=== PATIENT | male | born 1940 | race Caucasian/White ===

== ENCOUNTER → 2018-01-30 | Outpatient (CLI) | payer MEDICARE ==
--- NOTE | 2018-01-30 15:23 | CT ---
EXAMINATION TYPE: CT abdomen pelvis w con DATE OF EXAM: 01/30/2018 COMPARISON: NONE HISTORY: 77-year-old male Left lower quadrant pain x 2 weeks. Mid pelvic pain x today. TECHNIQUE: Contiguous axial scanning of the abdomen and pelvis following administration of 100 ml Iso chavo 300 IV contrast. Delayed images through the kidneys and coronal/sagittal reconstructions perform ed. CT DLP: 722.5 mGycm Automated exposure control for dose reduction was used. FINDINGS: Normal size without pericardial effusion. Some strandy atelectasis in the lower lungs without pleural effusion. Partially visualized calcified mediastinal and right hilar lymph nodes suggesting prior gr anulomatous disease. No focal liver lesion or biliary ductal dilatation. Portal venous system is patent. Cholecystectomy clips. Kym hepatis lymph node measures up to 1.3 cm. Adrenal glands and spleen appear within normal limits. Numerous subcentimeter hypodensities in both kidneys too small for accurate CT characterization, most suggestive of cysts. There is a nonobstructive 6 mm calculus midpole right kidney. Symmetric excreti on of contrast from both kidneys. Spleen is borderline enlarged at 14.0 cm with a 1.8 cm round enhancing mass anteriorly is also blood pool and delayed kidney images suggesting a hemangioma. Smaller similar lesion measuring 7 mm in the mid aspect of the spleen. Numerous mildly enlarged retroperitoneal lymph nodes measure up to 1.4 cm short axis, thoracic percen t of images, refer to coronal images 43 through 47. Some of the larger lymph nodes are in the left pa ra-aortic region, axial image 39. No dilated small bowel, free fluid, or free air. Oral contrast has progressed to the rectum. There is sigmoid diverticulosis with a there is a mild wa ll thickening in the sigmoid colon. Mild pericolonic fat stranding, particularly, coronal image 36 on the mid sigmoid colon. Bladder is urine distended. No abnormal fluid collection the pelvis. Prominent external iliac chain l ymph nodes measure up to 9 mm on the left and 7 mm on the right. Partially visualized small left-side d hydrocele. Bones: Degenerative spurring at the right SI joint. Degenerative changes mid to lower lumbar spine. A nterior plate spondylosis. Additionally degenerative disc disease lower thoracic spine. IMPRESSION: 1. SIGMOID DIVERTICULOSIS. THERE IS SOME MILD WALL THICKENING IN THE SIGMOID COLON AND SOME FOCAL PER ICOLONIC FAT STRANDING WHICH COULD REPRESENT PROMINENT VESSELS OR MILD INFLAMMATION RELATED TO MILD A CUTE DIVERTICULITIS ALONG THE MID SIGMOID. NO ABSCESS OR FREE AIR. 2. BORDERLINE SPLENOMEGALY ALONG WITH NUMEROUS NONENLARGED AND MILDLY ENLARGED RETROPERITONEAL LYMPH NODES MEASURING UP TO 1.4 CM. SYSTEMIC INFECTIOUS PROCESS OR AN INDOLENT LYMPHOMA IS NOT EXCLUDED AT THIS TIME. FOLLOW-UP IN 3 MONTHS TO ASSESS FOR STABILITY/RESOLUTION. CONSIDER [facility] REFERRAL IN THE MEANTIME.
== END ==
LOC: RADCTMAIN 12:26
PROVIDERS: ATTEND Internal Medicine Geriatric Medicine
DX: K57.30 Diverticulosis of large intestine without perforation or abscess without bleeding (principal); K59.8 Other specified functional intestinal disorders; R16.1 Splenomegaly, not elsewhere classified
CPT/HCPCS: 82565; 84520; 74177; 36415; Q9967

== ENCOUNTER → 2018-08-16 | Outpatient (CLI) | payer MEDICARE ==
--- NOTE | 2018-08-16 15:54 | CT ---
EXAMINATION TYPE: CT angio neck DATE OF EXAM: 08/16/2018 HISTORY: Abnormal US, carotid stenosis. COMPARISON: NONE CT DLP: 249.2 mGycm. Automated Exposure Control for Dose Reduction was Utilized. TECHNIQUE: CTA scan of the neck is performed with IV Contrast, patient injected with 50 mL of Isovue 370, axial images are obtained, coronal and sagittal reformatted images are reviewed. Three-D recons tructed images are created on an independent workstation and reviewed. FINDINGS: Carotid/Vascular Structures: There is normal three-vessel origin from the aortic arch. There is moder ate concentric peripheral plaque surrounding the left subclavian artery with moderate to severe right posterior mixed plaque identified near axial image 25. No significant stenosis is clearly seen in ri ght brachiocephalic or bilateral subclavian arteries. Right common carotid artery shows normal origin from right brachiocephalic artery. There is no signif icant plaque or stenosis to carotid bulb where there is moderate to severe predominantly calcified pl aque extending into proximal internal and external carotid arteries. Significant stenosis greater vadim n 50% at origin of right external carotid artery is felt present. There is significant stenosis in th e proximal right internal carotid artery, lumen diameter is narrowed to 2.4 mm on raw data axial imag e 487 and reconstitutes to 5.4 mm on raw data axial image 560. 3-D evaluation suboptimal due to Alfredo ips postprocessing. Remainder right internal carotid artery shows no significant plaque or stenosis. Left common carotid artery shows no significant plaque or stenosis. There is mild to moderate mixed p laque left carotid bulb. There is more severe noncalcified plaque causing complete occlusion of the l eft external carotid artery shortly after its origin. No significant stenosis in the left internal ca rotid artery is present. Other: There is multilevel moderate to severe spurring and disc space narrowing throughout the cervi moncho spine with spondylolisthesis C3-C4 C4-C5 levels present. There is bifrontal mild emphysematous change with scattered thoracic calcified lymph nodes, some prom inent high right paratracheal lymph nodes axial image 15 are seen without calcification, not definiti vely enlarged in size. IMPRESSION: 1. Significant stenosis right internal carotid artery estimated near 55% is present. Complete occlusi on left external carotid artery shortly after its origin is noted.
== END | disposition home or self-care (01) ==
LOC: RADCTMAIN 12:46
PROVIDERS: ATTEND Thoracic Surgery (Cardiothoracic Vascular Surgery)
DX: I65.23 Occlusion and stenosis of bilateral carotid arteries (principal)
CPT/HCPCS: 82565; 84520; 70498; 36415; Q9967

== ENCOUNTER → 2019-07-20 | Outpatient (CLI) | payer MEDICARE ==
--- NOTE | 2019-07-20 15:23 | CT ---
EXAMINATION TYPE: CT abdomen pelvis w con DATE OF EXAM: 07/20/2019 COMPARISON: 01/30/2018 HISTORY: Left sided abdominal pain. CT DLP: 692.6 mGycm Automated exposure control for dose reduction was used. CONTRAST: CT scan of the abdomen pelvis is performed with IV Contrast, patient injected with 100 mL of Isovue M 300. FINDINGS- LUNG BASES-the heart is enlarged. Subsegmental changes at the lung bases typical of atelectasis. Calc ified hilar lymph nodes noted. LIVER/GB-there are prominent in size with mild low attenuation correlate for hepatic steatosis. Surgi moncho clips in the gallbladder fossa.. PANCREAS- No gross abnormality is seen. SPLEEN-stable enhancing splenic lesions largest measuring 1.8 cm. ADRENALS- No gross abnormality is seen. KIDNEYS/BLADDER-stable nonobstructing 5 mm right renal calculus. Hypodensities within the kidneys are too small to characterize but statistically most likely related to cysts. BOWEL-bowel gas pattern nonspecific. Extensive diverticulosis of the sigmoid colon noted. No diagnost ic evidence of diverticulitis.. LYMPH NODES- No greater than 1cm abdominal or pelvic lymph nodes areappreciated numerous shotty lymp h nodes are seen in the retroperitoneum and appear stable relative the prior exam. Largest lymph node measures a short axis of 9 mm compatible with borderline lymphadenopathy.. OSSEOUS STRUCTURES-hypertrophic and degenerative change of the spine with a grade 1 anterolisthesis L 4 on L5 and multilevel facet arthropathy. Multilevel foraminal encroachment noted. Canal stenosis not excluded. OTHER- aorta of normal caliber. IMPRESSION- 1. Diverticulosis with no CT evidence of diverticulitis. There is wall thickening which likely is rel ated to the diverticulosis. If there is concern for mucosal lesion correlate with direct visualizatio n. 2. Stable shotty adenopathy within the abdomen and retroperitoneum. 3. Nonobstructing right renal calculus. 4. Stable enhancing splenic lesions unchanged from prior exam. Spleen measures 13.5 cm compatible wit h mild splenomegaly.
== END | disposition home or self-care (01) ==
LOC: RADCTMAIN 13:04
PROVIDERS: ATTEND Internal Medicine Geriatric Medicine
DX: K57.90 Diverticulosis of intestine, part unspecified, without perforation or abscess without bleeding (principal); R59.0 Localized enlarged lymph nodes; N20.0 Calculus of kidney; K57.32 Diverticulitis of large intestine without perforation or abscess without bleeding
CPT/HCPCS: 82565; 84520; 74177; 36415; Q9967 ×2

== ENCOUNTER → 2019-12-25 | Day surgery (SDC) | payer MEDICARE | LOC: CATHCVL 12:45 | PROVIDERS: ATTEND Internal Medicine Infectious Disease | DX: M65.841 Other synovitis and tenosynovitis, right hand (principal); B95.62 Methicillin resistant Staphylococcus aureus infection as the cause of diseases classified elsewhere; M19.90 Unspecified osteoarthritis, unspecified site; E11.9 Type 2 diabetes mellitus without complications; Z86.73 Personal history of transient ischemic attack (TIA), and cerebral infarction without residual deficits; Z87.01 Personal history of pneumonia (recurrent); Z87.891 Personal history of nicotine dependence; Z98.890 Other specified postprocedural states; Z88.2 Allergy status to sulfonamides; Z82.49 Family history of ischemic heart disease and other diseases of the circulatory system | CPT/HCPCS: 36410; C1751; J0878; 76937 ==

== ENCOUNTER 2020-01-15 21:37 | Emergency (ER) | payer MEDICARE ==
--- NOTE | 2020-01-15 22:39 | ED ---
Fever HPI - General Chief Complaint: Fever Stated Complaint: Fever,Cough,COVID Symptoms Time Seen by Provider: 01/15/20 22:20 Source: patient Mode of arrival: ambulatory Limitations: no limitations - History of Present Illness Initial Comments: Patient is an 79-year-old man who presents to be evaluated for fever that is been going on for 2 days. He has also been having some mild generalized weakness and fatigue. He notes a little bit of cough. The patient denies chest pain or dyspnea. No orthopnea. No sputum production. No change in urination or bowel movements. MD Complaint: fever Onset/Timin -: days(s) Temperature Source: oral Associated Symptoms: headache, cough Treatments Prior to Arrival: none - Related Data Home Medications Medication Instructions Recorded Confirmed Ascorbic Acid [Vitamin C] 500 mg PO HS 01/15/20 01/15/20 Aspirin EC [Ecotrin Low Dose] 81 mg PO HS 01/15/20 01/15/20 Atorvastatin Calcium [Lipitor] 10 mg PO DAILY 01/15/20 01/15/20 Cephalexin [Keflex] 500 mg PO TID 01/15/20 01/15/20 Dorzolamide-Timol 2.23%/0.68% 1 drop BOTH EYES BID 01/15/20 01/15/20 [Cosopt] Gabapentin [Neurontin] 300 mg PO DAILY 01/15/20 01/15/20 Glimepiride [Amaryl] 2 mg PO BID 01/15/20 01/15/20 Glucos Sul 2Kcl/MSM/Chond/C/Mn 1 tab PO BID 01/15/20 01/15/20 [Glucosamine Chondroitin Cap] Latanoprost/Pf [Latanoprost 0.005% 1 drop BOTH EYES HS 01/15/20 01/15/20 Eye Drop] Multivitamins, Thera [Multivitamin 1 tab PO DAILY 01/15/20 01/15/20 (formulary)] Omeprazole 20 mg PO DAILY 01/15/20 01/15/20 Saw [place] 450mg 450 mg PO BID 01/15/20 01/15/20 Sertraline [Zoloft] 50 mg PO HS 01/15/20 01/15/20 Tamsulosin HCl [Flomax] 0.4 mg PO HS 01/15/20 01/15/20 Previous Rx's Medication Instructions Recorded Azithromycin [Zithromax Z-pack (6 250 mg PO DIRECTED #6 tab 01/16/20 tabs)] Allergies Allergy/AdvReac Type Severity Reaction Status Date / Time Sulfa (Sulfonamide Allergy Unknown Verified 01/15/20 22:35 Antibiotics) Review of Systems ROS Statement: Those systems with pertinent positive or pertinent negative responses have been documented in the HPI. ROS Other: All systems not noted in ROS Statement are negative. Constitutional: Reports: fever, weakness Respiratory: Reports: cough. Denies: dyspnea, wheezes, hemoptysis Cardiovascular: Denies: chest pain, palpitations, orthopnea, edema Endocrine: Reports: fatigue Gastrointestinal: Denies: abdominal pain, nausea, vomiting, diarrhea, constipation Genitourinary: Denies: dysuria, frequency, hematuria Musculoskeletal: Denies: back pain Skin: Denies: rash Neurological: Denies: headache, weakness, numbness Past Medical History Past Medical History: Cancer, Diabetes Mellitus, Hyperlipidemia, Pneumonia Additional Past Medical History / Comment(s): CLL History of Any Multi-Drug Resistant Organisms: MRSA Date of last positivie culture/infection: 12/12/19 MDRO Source:: Right Third Finger Past Surgical History: Cholecystectomy, Joint Replacement Additional Past Surgical History / Comment(s): tear duck repair Past Psychological History: No Psychological Hx Reported Smoking Status: Never smoker Past Alcohol Use History: Occasional Past Drug Use History: None Reported General Exam Limitations: no limitations General appearance: alert, in no apparent distress Head exam: Present: atraumatic, normocephalic Eye exam: Present: normal appearance. Absent: scleral icterus, conjunctival injection ENT exam: Present: normal oropharynx Neck exam: Present: normal inspection, full ROM Respiratory exam: Present: rales. Absent: respiratory distress, wheezes, rhonchi, stridor, accessory muscle use, decreased breath sounds, prolonged expiratory Cardiovascular Exam: Present: regular rate, normal rhythm, normal heart sounds. Absent: systolic murmur, diastolic murmur, rubs, gallop GI/Abdominal exam: Present: soft. Absent: distended, tenderness, guarding, rebound, rigid, mass Extremities exam: Present: normal inspection, normal capillary refill. Absent: pedal edema, calf tenderness Back exam: Present: normal inspection. Absent: CVA tenderness (R), CVA tenderness (L) Neurological exam: Present: alert Skin exam: Present: warm, dry, intact, normal color. Absent: rash Course Vital Signs 01/15/20 01/16/20 22:06 00:44 Temperature 99.8 F H Pulse Rate 94 75 Respiratory 22 18 Rate Blood Pressure 175/75 164/89 O2 Sat by Pulse 94 L 95 Oximetry Medical Decision Making - Medical Decision Making Patient is 79-year-old man with fevers and cough, found to have what appears to be pneumonia on the x-ray. I was planning on admitting the patient to the hospital, but patient at this point is declining requesting to try course of ou tpatient antibiotics first. I discussed that there is concern that the outpatient antibiotic may not cover this, and he needs to return should he not be experiencing improvement or if there is any worsening. Discussed possibility of MRSA is agent given his recent tenosynovitis, patient will have close follow- up. - Lab Data Result diagrams: 01/15/20 22:55 01/15/20 22:55 Lab Results 01/15/20 01/15/20 01/15/20 Range/Units 22:55 22:55 22:55 WBC 31.3 H (3.8-10.6) k/uL RBC 4.67 (4.30-5.90) m/uL Hgb 14.9 (13.0-17.5) gm/dL Hct 43.3 (39.0-53.0) % MCV 92.8 (80.0-100.0) fL MCH 31.9 (25.0-35.0) pg MCHC 34.4 (31.0-37.0) g/dL RDW 12.5 (11.5-15.5) % Plt Count 166 (150-450) k/uL MPV 7.0 Lymphocytes % 54 % Monocytes % 2 % Eosinophils % 12 % Basophils % 1 % Neutrophils # 8.7 H (1.3-7.7) k/uL Lymphocytes # 16.9 H (1.0-4.8) k/uL Monocytes # 0.6 (0-1.0) k/uL Eosinophils # 3.7 H (0-0.7) k/uL Basophils # 0.4 H (0-0.2) k/uL Manual Slide Review Performed Polychromasia Present Anisocytosis (manual) Present Sodium 137 (137-145) mmol/L Potassium 4.2 (3.5-5.1) mmol/L Chloride 109 H (98-107) mmol/L Carbon Dioxide 23 (22-30) mmol/L Anion Gap 5 mmol/L BUN 19 (9-20) mg/dL Creatinine 1.03 (0.66-1.25) mg/dL Est GFR (CKD-EPI)AfAm 79 (>60 ml/min/1.73 sqM) Est GFR (CKD-EPI)NonAf 68 (>60 ml/min/1.73 sqM) Glucose 202 H (74-99) mg/dL Plasma Lactic Acid Kali 1.2 (0.7-2.0) mmol/L Calcium 9.0 (8.4-10.2) mg/dL Total Bilirubin 1.8 H (0.2-1.3) mg/dL AST 29 (17-59) U/L ALT 20 (4-49) U/L Alkaline Phosphatase 74 (38-126) U/L Total Protein 6.1 L (6.3-8.2) g/dL Albumin 3.8 (3.5-5.0) g/dL Coronavirus (PCR) (Not Detectd) 01/15/20 Range/Units 23:27 WBC (3.8-10.6) k/uL RBC (4.30-5.90) m/uL Hgb (13.0-17.5) gm/dL Hct (39.0-53.0) % MCV (80.0-100.0) fL MCH (25.0-35.0) pg MCHC (31.0-37.0) g/dL RDW (11.5-15.5) % Plt Count (150-450) k/uL MPV Lymphocytes % % Monocytes % % Eosinophils % % Basophils % % Neutrophils # (1.3-7.7) k/uL Lymphocytes # (1.0-4.8) k/uL Monocytes # (0-1.0) k/uL Eosinophils # (0-0.7) k/uL Basophils # (0-0.2) k/uL Manual Slide Review Polychromasia Anisocytosis (manual) Sodium (137-145) mmol/L Potassium (3.5-5.1) mmol/L Chloride (98-107) mmol/L Carbon Dioxide (22-30) mmol/L Anion Gap mmol/L BUN (9-20) mg/dL Creatinine (0.66-1.25) mg/dL Est GFR (CKD-EPI)AfAm (>60 ml/min/1.73 sqM) Est GFR (CKD-EPI)NonAf (>60 ml/min/1.73 sqM) Glucose (74-99) mg/dL Plasma Lactic Acid Kali (0.7-2.0) mmol/L Calcium (8.4-10.2) mg/dL Total Bilirubin (0.2-1.3) mg/dL AST (17-59) U/L ALT (4-49) U/L Alkaline Phosphatase (38-126) U/L Total Protein (6.3-8.2) g/dL Albumin (3.5-5.0) g/dL Coronavirus (PCR) Not Detected (Not Detectd) - EKG Data -: EKG Interpreted by [facility] EKG shows normal: sinus rhythm, axis (Normal), intervals (Normal), QRS complexes (Normal), ST-T waves (Normal) Rate: normal (Rate 84 bpm) Interpretation: normal EKG Disposition Clinical Impression: Pneumonia Disposition: HOME SELF-CARE Condition: Good Instructions (If sedation given, give patient instructions): Pneumonia (ED) Prescriptions: Azithromycin [Zithromax Z-pack (6 tabs)] 250 mg PO DIRECTED #6 tab Is patient prescribed a controlled substance at d/c from ED?: No Referrals: Tay Kamara MD [Primary Care Provider] - 1-2 days
[2020-01-15] MEDS ORDERED: AZITHROMYCIN 500 MG TAB PO STA (22:44)
[2020-01-15] MEDS ORDERED: ACETAMINOPHEN TAB 325 MG TAB PO STA (22:44)
[2020-01-15 23:08] LABS: Basophils # (A) 0.4 k/uL (0-0.2); Basophils % (A) 1 %; Eosinophils # (A) 3.7 k/uL (0-0.7); Eosinophils % (A) 12 %; HCT 43.3 % (39.0-53.0); HGB 14.9 gm/dL (13.0-17.5); Lymphocytes % (A) 54 %; MCH 31.9 pg (25.0-35.0); MCHC 34.4 g/dL (31.0-37.0); MCV 92.8 fL (80.0-100.0); Monocytes # (A) 0.6 k/uL (0-1.0); Monocytes % (A) 2 %; Neutrophils # (A) 8.7 k/uL (1.3-7.7); Platelet Count 166 k/uL (150-450); RBC 4.67 m/uL (4.30-5.90); RDW 12.5 % (11.5-15.5); WBC 31.3 k/uL (3.8-10.6)
[2020-01-15 23:17] LABS: Albumin 3.8 g/dL (3.5-5.0); Potassium 4.2 mmol/L (3.5-5.1); Total Bilirubin 1.8 mg/dL (0.2-1.3); Total Protein 6.1 g/dL (6.3-8.2)
--- NOTE | 2020-01-15 23:34 | XR ---
EXAMINATION TYPE: XR chest 1V portable DATE OF EXAM: 01/15/2020 COMPARISON: 12/20 HISTORY: Fever TECHNIQUE: FINDINGS: Heart is normal. There is some coarsening of the interstitial markings. There is some infil trate lateral to the left pulmonary hilum. There is no obvious heart failure. There are chest leads. There is increased density over the right lung base. IMPRESSION: Bilateral pulmonary infiltrates. There is new infiltrate left midlung compared to old exa m. There is improvement in the infiltrate right lower lobe compared to old exam. No heart failure. Th ere is probably some mild interstitial pneumonia.
[2020-01-16 00:04] LABS: Lymphocytes # (A) 16.9 k/uL (1.0-4.8)
[2020-01-16 00:32] LABS: Anisocytosis (M) Present; Polychromasia Present
[2020-01-16 00:45] VITALS: RESP 18
[2020-01-16 01:54] VITALS: BP 166/84; PULSE 87; TEMP 98.4
== END 2020-01-16 01:54 | disposition home or self-care (01) ==
LOC: EC 21:37
DX: J18.9 Pneumonia, unspecified organism (principal); Z20.828 Contact with and (suspected) exposure to other viral communicable diseases; E11.9 Type 2 diabetes mellitus without complications; E78.5 Hyperlipidemia, unspecified; Z79.82 Long term (current) use of aspirin; Z79.84 Long term (current) use of oral hypoglycemic drugs; Z79.899 Other long term (current) drug therapy; Z88.2 Allergy status to sulfonamides; Z85.6 Personal history of leukemia
CPT/HCPCS: 36415; 93005; 80053; 83605; 85025; 87040; 84145; 87635; 71045; 99284; 96365; J0696

== ENCOUNTER → 2020-05-15 | Day surgery (SDC) | payer MEDICARE ==
[2020-05-12 14:17] VITALS: BMI 26.6
[~2020-05-15] MED LIST: LACTATED RINGERS 1,000 ML IV SCH; LIDOCAINE 1% INJ 10MG/ML (20 ML MDV) ONE; PROPOFOL 10 MG/ML 20 ML VIAL IV ONE
[2020-05-15 07:39] VITALS: TEMP 97.1
[2020-05-15 07:45] LABS: Glucose,Whole Blood 113 mg/dL (75-99)
--- NOTE | 2020-05-15 08:07 | P.GSHP ---
History of Present Illness H&P Date: 05/15/20 Chief Complaint: GERD, diverticulitis This 79-year-old male who presents today for EGD and colonoscopy. He's had issues with GERD. Also. History of diverticulitis. He states she's never had a colonoscopy. 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, glaucoma History of Any Multi-Drug Resistant Organisms: MRSA Date of last positivie culture/infection: 12/12/19 MDRO Source:: Right middle Finger Past Surgical History: Cholecystectomy, Orthopedic Surgery Additional Past Surgical History / Comment(s): rt rotator cuff, tear duct repair, colonoscopy, trigger finger sx citlalli hand, rt hand incision and drainage, Past Anesthesia/Blood Transfusion Reactions: No Reported Reaction Smoking Status: Former smoker Medications and Allergies Home Medications Medication Instructions Recorded Confirmed Type Ascorbic Acid [Vitamin C] 500 mg PO HS 01/15/20 05/12/20 History Aspirin EC [Ecotrin Low Dose] 81 mg PO HS 01/15/20 05/12/20 History Atorvastatin Calcium [Lipitor] 10 mg PO DAILY 01/15/20 05/12/20 History Dorzolamide-Timol 2.23%/0.68% 1 drop BOTH EYES BID 01/15/20 05/12/20 History [Cosopt] Gabapentin [Neurontin] 300 mg PO DAILY 01/15/20 05/12/20 History Glimepiride [Amaryl] 2 mg PO BID 01/15/20 05/12/20 History Glucos Sul 2Kcl/MSM/Chond/C/Mn 1 tab PO BID 01/15/20 05/12/20 History [Glucosamine Chondroitin Cap] Latanoprost/Pf [Latanoprost 0.005% 1 drop BOTH EYES HS 01/15/20 05/12/20 History Eye Drop] Multivitamins, Thera [Multivitamin 1 tab PO DAILY 01/15/20 05/12/20 History (formulary)] Saw [place] 450mg 450 mg PO BID 01/15/20 05/12/20 History Sertraline [Zoloft] 25 mg PO HS 01/15/20 05/12/20 History Tamsulosin HCl [Flomax] 0.4 mg PO HS 01/15/20 05/12/20 History Allergies Allergy/AdvReac Type Severity Reaction Status Date / Time Sulfa (Sulfonamide Allergy Unknown Verified 05/15/20 07:28 Antibiotics) Surgical - Exam Vital Signs Temp Pulse Resp BP Pulse Ox 97.1 F L 54 L 17 153/70 95 05/15/20 07:38 05/15/20 07:38 05/15/20 07:38 05/15/20 07:38 05/15/20 07:38 - General well developed, well nourished, no distress - Eyes PERRL - ENT normal pinna - Neck no masses - Respiratory normal expansion - Cardiovascular Rhythm: regular - Abdomen Abdomen: soft, non tender Results - Labs Abnormal Lab Results - Last 24 Hours (Table) 05/15/20 Range/Units 07:40 POC Glucose (mg/dL) 113 H (75-99) mg/dL Assessment and Plan Assessment: GERD, diverticulitis. We'll perform EGD and colonoscopy.
--- NOTE | 2020-05-15 08:20 | P.OP ---
Date of Procedure: 05/15/20 Preoperative Diagnosis: GERD Diverticulitis Postoperative Diagnosis: Antral gastritis Mild esophagitis No evidence of hiatal hernia Procedure(s) Performed: EGD Colonoscopy Anesthesia: MAC Surgeon: Quinton Martínez Pathology: other (Antrum, esophagus) Condition: stable Disposition: PACU Description of Procedure: The patient's placed on the endoscopy table in the lateral position. He received IV sedation. The gastroscope oropharynx passed in the esophagus into the stomach. Scope was through the pylorus. The first and second portion of the duodenum appeared normal. Scope was then brought back the antrum this was mildly inflamed. A biopsies performed. Scope was then retroflexed the remainder stomach appeared normal. There was no significant hiatal hernia. The GE junction was at 40 cm the distal esophagus was minimal inflamed a biopsies performed. The proximal esophagus appeared normal. Scope was withdrawn for patient. Next digital rectal exam performed, this revealed no abnormalities. The prostate was symmetric without nodules. The flexible colonoscope was then placed patient anus and passed throughout the entire colon. The ileocecal valve was visualized. The cecum, ascending and transverse colon appeared normal. In the descending; was mild diverticular changes. Scope was brought back the rectum this appeared normal. Scope was withdrawn for patient.
[2020-05-15 08:30] VITALS: RESP 16
[2020-05-15 08:42] VITALS: BP 123/70; PULSE 67
== END ==
LOC: ORWHC2ENDO 07:10
PROVIDERS: ATTEND Surgery
DX: K21.00 Gastro-esophageal reflux disease with esophagitis, without bleeding (principal); K29.50 Unspecified chronic gastritis without bleeding; K31.9 Disease of stomach and duodenum, unspecified; K57.30 Diverticulosis of large intestine without perforation or abscess without bleeding; C91.10 Chronic lymphocytic leukemia of B-cell type not having achieved remission; E11.9 Type 2 diabetes mellitus without complications; H40.9 Unspecified glaucoma; E78.5 Hyperlipidemia, unspecified; N42.9 Disorder of prostate, unspecified; G56.91 Unspecified mononeuropathy of right upper limb; Z87.01 Personal history of pneumonia (recurrent); Z98.890 Other specified postprocedural states; Z86.14 Personal history of Methicillin resistant Staphylococcus aureus infection; Z90.49 Acquired absence of other specified parts of digestive tract; Z87.891 Personal history of nicotine dependence; Z79.82 Long term (current) use of aspirin; Z79.899 Other long term (current) drug therapy; Z88.2 Allergy status to sulfonamides; Z79.84 Long term (current) use of oral hypoglycemic drugs
CPT/HCPCS: 45378; 43239; J2001; J2704; 88305

== ENCOUNTER → 2020-06-02 | Outpatient (CLI) | payer MEDICARE ==
--- NOTE | 2020-06-02 16:15 | CT ---
EXAMINATION TYPE: CT abdomen pelvis w con DATE OF EXAM: 06/02/2020 COMPARISON: CT abdomen and pelvis July 20, 2019 HISTORY: Left lower quadrant pain x 6-[address] DLP: 696.2 mGycm, Automated Exposure Control for Dose Reduction was Utilized. CONTRAST: CT scan of the abdomen and pelvis is performed with oral and with IV Contrast, patient injected with 100 mL of Isovue M300. FINDINGS: LUNG BASES: Mild parenchymal scarring bilaterally. LIVER/GB: Cholecystectomy clips are redemonstrated. PANCREAS: No significant abnormality is seen. SPLEEN: Stable 1.8 cm hyperdense lesion in the spleen anteriorly becomes more isodense on delayed pha se. Smaller subcentimeter hyperdense focus axial image 18 redemonstrated. ADRENALS: No significant abnormality is seen. KIDNEYS: Scattered subcentimeter thin wall benign cysts in both kidneys redemonstrated. BOWEL:. Contrast does not reach terminal ileum on current study making evaluation of distal bowel sli ghtly suboptimal. Scattered diverticula in the left and sigmoid colon. No CT evidence for acute diver ticulitis. PROSTATE/SEMINAL VESICLES: No gross abnormality seen. LYMPH NODES: No new greater than 1cm abdominal or pelvic lymph nodes are appreciated. Prominent but subcentimeter retroperitoneal lymph nodes are stable for reference axial image 35. OSSEOUS STRUCTURES: Slight grade 1 anterolisthesis L4 on L5. OTHER: Moderate mixed plaque of the aorta extends into branch vessels. IMPRESSION: No significant new or acute finding is seen to account for patient's clinical symptoms. Diverticulosis left and sigmoid colon redemonstrated without CT evidence for acute diverticulitis
== END | disposition home or self-care (01) ==
LOC: RADCTMAIN 13:56
PROVIDERS: ATTEND Surgery
DX: K57.30 Diverticulosis of large intestine without perforation or abscess without bleeding (principal)
CPT/HCPCS: 82565; 84520; 74177; 36415; Q9967 ×2

== ENCOUNTER → 2022-01-27 | Outpatient (CLI) | payer MEDICARE ==
--- NOTE | 2022-01-27 14:16 | CT ---
EXAMINATION TYPE: CT angio neck DATE OF EXAM: 01/27/2022 COMPARISON: 08/16/2018 HISTORY: Occlusion and stenosis CT DLP: 249.60 mGycm CONTRAST: CTA cervical carotids is performed and with IV Contrast, patient injected with 65 mL of Isovue 370. Contrast CTA of the cervical carotids was performed 3-D reconstruction imaging obtained at a separate workstation. Right carotid system: Mild plaque is seen of the right common carotid artery. There is mild calcifie d plaque also noted at the carotid bulb. Estimated diameter reduction is 55%. ECA is patent. Righ t vertebral artery appears unremarkable. Left carotid system: Mild plaque is seen of the left common carotid artery. There is mild soft plaqu e also noted at the carotid bulb. Estimated diameter reduction is 60%. ECA is occluded as was note d previously. Left vertebral artery appears unremarkable. IMPRESSION: 1. Estimated diameter reduction Right ICA 55% 2. Estimated diameter reduction Left ICA 60% NASCET criteria was used in interpretation of this exam?
== END | disposition home or self-care (01) ==
LOC: RADCTMAIN 11:54
PROVIDERS: ATTEND Surgery
DX: I65.23 Occlusion and stenosis of bilateral carotid arteries (principal)
CPT/HCPCS: 82565; 84520; 70498; 36415; Q9967

== ENCOUNTER → 2022-10-15 | Day surgery (SDC) | payer MEDICARE ==
[2022-10-14 11:06] VITALS: BMI 26.2
[~2022-10-15] MED LIST changes: +IOPAMIDOL-370 100ML BTL INJ ONE; -LACTATED RINGERS 1,000 ML IV SCH; -LIDOCAINE 1% INJ 10MG/ML (20 ML MDV) ONE; +LIDOCAINE 1% INJ 10MG/ML (30 ML VIAL-PF) SQ ONE; -PROPOFOL 10 MG/ML 20 ML VIAL IV ONE; +SODIUM CHLORIDE 0.9% 1,000 ML IV ONE; +SODIUM CHLORIDE 0.9% 1,000 ML IV SCH; +fentaNYL (PF) 50 MCG/1 ML VIAL IVP ONE; +fentaNYL (PF) 50 MCG/ML 2 ML AMP ONE
[2022-10-15 07:26] LABS: Glucose,Whole Blood 83 mg/dL (70-110)
[2022-10-15 07:30] VITALS: RESP 16; TEMP 97.9
[2022-10-15 08:36] LABS: African American GFR (CKD) 81 (>60 ml/min/1.73 sqM); Anion Gap 6 mmol/L; Blood Urea Nitrogen 18 mg/dL (9-20); Calcium 8.4 mg/dL (8.4-10.2); Carbon Dioxide 25 mmol/L (22-30); Chloride 112 mmol/L (98-107); Glucose 81 mg/dL (74-99); Non-African American GFR(CKD) 70 (>60 ml/min/1.73 sqM); Potassium 3.4 mmol/L (3.5-5.1); Sodium 143 mmol/L (137-145)
[2022-10-15 08:38] LABS: HCT 40.7 % (39.0-53.0); HGB 14.4 gm/dL (13.0-17.5); MCHC 35.2 g/dL (31.0-37.0); MCV 93.8 fL (80.0-100.0); Mean Platelet Volume 8.3; Platelet Count 163 k/uL (150-450); RBC 4.34 m/uL (4.30-5.90); RDW 13.3 % (11.5-15.5); WBC 27.3 k/uL (3.8-10.6)
--- NOTE | 2022-10-15 09:18 | P.OP ---
Date of Procedure: 10/15/22 Description of Procedure: Preoperative diagnosis: Bilateral Carotid stenosis Postoperative diagnosis: Right internal carotid artery stenosis 86%, Left internal carotid artery stenosis 87% Procedure: Aortic arch angiogram with bilateral carotid artery angiogram Surgeon: Chris Lam DO Anesthesia: Local with sedation EBL: Minimal Complications: None Condition: Stable Findings: Severe stenosis bilateral internal carotid artery Indication for procedure: 82 year old gentleman with history of carotid stenosis presents to the clinical laboratory scientist due to carotid Doppler and CTA discrepancy for catheter directed angiogram. 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 Operative narrative: After written and informed consent was obtained the patient and all risks benefits and complications were described the patient was brought to the [facility] and laid in a supine position. The area of the right groin was prepped and draped in the usual sterile fashion. Utilizing ultrasound the right common femoral artery was visualized and demonstrated patency with minimal calcification. Under ultrasound guidance the femoral artery was cannulated and utilizing Seldinger technique a 5-Burkinan sheath was placed. 035 Glidewire was then placed to the aortic arch followed by pigtail catheter. Utilizing the pigtail catheter and arch angiogram was obtained. A JB2 was then placed and selective access to the right and then left carotid arteries was obtained. Multiple views were then obtained of the carotid arteries bilaterally. All guidewires and catheters were then removed and hemostasis was achieved with direct pressure. The patient tolerated the procedure well and was sent to PACU for recovery. Plan - Discharge Summary Discharge Rx Participant: No New Discharge Prescriptions: No Action Multivitamins, Thera [Multivitamin (formulary)] 1 tab PO DAILY Aspirin EC [Ecotrin Low Dose] 81 mg PO DAILY Saw [place] 450mg 450 mg PO BID Ascorbic Acid [Vitamin C] 500 mg PO DAILY Tamsulosin HCl [Flomax] 0.4 mg PO DAILY Sertraline [Zoloft] 25 mg PO PC-LUNCH Latanoprost/Pf [Latanoprost 0.005% Eye Drop] 1 drop BOTH EYES HS Glimepiride [Amaryl] 2 mg PO BID Gabapentin [Neurontin] 300 mg PO DAILY Atorvastatin Calcium [Lipitor] 10 mg PO DAILY Glucos Sul 2Kcl/MSM/Chond/C/Mn [Glucosamine Chondroitin Cap] 1 tab PO BID Dorzolamide-Timol 2.23%/0.68% [Cosopt] 1 drop LEFT EYE BID Atropine Ophth Soln 1% 5Ml [Isopto Atropine 1% 5Ml] 1 drop BOTH EYES DAILY Omeprazole 20 mg PO DAILY Losartan Potassium 100 mg PO HS Discharge Medication List Ascorbic Acid [Vitamin C] 500 mg PO DAILY 01/15/20 [History] Aspirin EC [Ecotrin Low Dose] 81 mg PO DAILY 01/15/20 [History] Atorvastatin Calcium [Lipitor] 10 mg PO DAILY 01/15/20 [History] Dorzolamide-Timol 2.23%/0.68% [Cosopt] 1 drop LEFT EYE BID 01/15/20 [History] Gabapentin [Neurontin] 300 mg PO DAILY 01/15/20 [History] Glimepiride [Amaryl] 2 mg PO BID 01/15/20 [History] Glucos Sul 2Kcl/MSM/Chond/C/Mn [Glucosamine Chondroitin Cap] 1 tab PO BID 01/15/20 [History] Latanoprost/Pf [Latanoprost 0.005% Eye Drop] 1 drop BOTH EYES HS 01/15/20 [History] Multivitamins, Thera [Multivitamin (formulary)] 1 tab PO DAILY 01/15/20 [History] Saw [place] 450mg 450 mg PO BID 01/15/20 [History] Sertraline [Zoloft] 25 mg PO PC-LUNCH 01/15/20 [History] Tamsulosin HCl [Flomax] 0.4 mg PO DAILY 01/15/20 [History] Atropine Ophth Soln 1% 5Ml [Isopto Atropine 1% 5Ml] 1 drop BOTH EYES DAILY 10/14/22 [History] Losartan Potassium 100 mg PO HS 10/14/22 [History] Omeprazole 20 mg PO DAILY 10/14/22 [History] Follow up Appointment(s)/Referral(s): Chris Lam DO [STAFF PHYSICIAN] - 1 Week (PLEASE CALL OFFICE FOR APPOINTMENT. (OFFICE WAS CLOSED TUESDAY)) Activity/Diet/Wound Care/Special Instructions: NO DRIVING FOR TWO DAYS. OK TO SHOWER TOMORROW, TAKE DRESSING OFF IF ONE IS ON PUNCTURE SITE. MONITOR FOR SWELLING, RASH, UNUSUAL DRAINAGE OR HARD KNOT ON PUNCTURE SITE. CONTACT [facility] WITH ANY CHANGES. FOR HEAVY BLEEDING, APPLY FIRM DIRECT PRESSURE AND CALL [address] S[address]F. MEDICATIONS DIRECTED BY
[2022-10-15 12:53] LABS: Eosinophils # (M) 0.27 k/uL (0-0.7); Monocytes # (M) 0.82 k/uL (0-1.0); Neutrophils # (M) 2.46 k/uL (1.3-7.7); Neutrophils % (M) 9 %; Nucleated Red Blood Cells 0 /100 WBC (0-0); Total Cells Counted 100
[2022-10-15 14:51] VITALS: BP 158/72; PULSE 62
--- NOTE | 2022-10-15 19:31 | IR ---
EXAMINATION TYPE: IR angio aortic arch DATE OF EXAM: 10/15/2022 COMPARISON: NONE HISTORY: bilateral carotid stenosis, 5.7min fluoro, total DAP [id number] Fluoroscopy was provided to the referring clinician.
== END ==
LOC: CATHCVL 06:23
PROVIDERS: ATTEND Surgery
DX: I65.23 Occlusion and stenosis of bilateral carotid arteries (principal); H40.9 Unspecified glaucoma; F10.90 Alcohol use, unspecified, uncomplicated; Z86.73 Personal history of transient ischemic attack (TIA), and cerebral infarction without residual deficits; Z88.2 Allergy status to sulfonamides; Z91.048 Other nonmedicinal substance allergy status; Z79.82 Long term (current) use of aspirin; Z79.899 Other long term (current) drug therapy; Z87.891 Personal history of nicotine dependence
CPT/HCPCS: 36216; 36222; 80048; 85025; C1894; C1769 ×3; J2001; Q9967; J3010

== ENCOUNTER 2022-12-03 09:06 | Inpatient (IN) | payer MEDICARE ==
[~2022-12-03 09:06] MED LIST changes: +ALPRAZolam 0.25 MG TAB PO PRN; +ALPRAZolam 0.5 MG TAB PO PRN; -IOPAMIDOL-370 100ML BTL INJ ONE; -LIDOCAINE 1% INJ 10MG/ML (30 ML VIAL-PF) SQ ONE; +NITROGLYCERIN SL TABS 0.4 MG TAB SUBLINGUAL PRN; +Pre Op ABX Message 1 EACH MISC MISCELLANE ONE; +RX INFO: IV CONTRAST WAS GIVEN 1 EACH MISC MISCELLANE PRN; -SODIUM CHLORIDE 0.9% 1,000 ML IV ONE; -SODIUM CHLORIDE 0.9% 1,000 ML IV SCH; +SODIUM CHLORIDE 0.9% 1,000 ML in EMPTY BAG 1 BAG IV ONE; -fentaNYL (PF) 50 MCG/1 ML VIAL IVP ONE; -fentaNYL (PF) 50 MCG/ML 2 ML AMP ONE
[2022-12-03] MEDS ORDERED: SODIUM CHLORIDE 0.9% 1,000 ML IV ONE (09:33)
[2022-12-03 09:48] LABS: Glucose,Whole Blood 121 mg/dL (70-110)
[2022-12-03 09:53] LABS: Basophils # (A) 0.2 k/uL (0-0.2); Basophils % (A) 1 %; Eosinophils # (A) 0.3 k/uL (0-0.7); Eosinophils % (A) 1 %; HCT 45.4 % (39.0-53.0); HGB 15.6 gm/dL (13.0-17.5); Lymphocytes % (A) 79 %; MCH 33.3 pg (25.0-35.0); MCHC 34.3 g/dL (31.0-37.0); Mean Platelet Volume 7.4; Monocytes # (A) 0.4 k/uL (0-1.0); Monocytes % (A) 1 %; Neutrophils # (A) 3.5 k/uL (1.3-7.7); Neutrophils % (A) 13 %; Platelet Count 186 k/uL (150-450); RBC 4.68 m/uL (4.30-5.90); RDW 12.3 % (11.5-15.5); WBC 26.4 k/uL (3.8-10.6)
[2022-12-03 09:55] LABS: Lymphocytes # (A) 20.9 k/uL (1.0-4.8)
[2022-12-03 10:02] LABS: African American GFR (CKD) 77 (>60 ml/min/1.73 sqM); Anion Gap 7 mmol/L; Blood Urea Nitrogen 18 mg/dL (9-20); Calcium 9.2 mg/dL (8.4-10.2); Carbon Dioxide 26 mmol/L (22-30); Chloride 108 mmol/L (98-107); Glucose 124 mg/dL (74-99); Non-African American GFR(CKD) 67 (>60 ml/min/1.73 sqM); Potassium 4.3 mmol/L (3.5-5.1); Sodium 141 mmol/L (137-145)
--- NOTE | 2022-12-03 10:26 | P.ANPRN ---
Procedure Note - Anesthesia - Invasive Line Right Arterial Line Date of Procedure: 12/03/22 Time of Procedure: 10:00 Location of Patient: [facility] Preparation: Sterile Prep, Sterile Dressing Arterial Line Location: Radial (Right side) Ultrasound Used: No Narrative: Central line placement per sterile protocol utilized.
[2022-12-03 10:32] LABS: RBC Morphology Normal
[2022-12-03] MEDS ORDERED: ceFAZolin 1,000 MG in SODIUM CHLORIDE 0.9% IRRIG BTL 250 ML IRRIGATION ONE (12:42)
[2022-12-03] MEDS ORDERED: LIDOCAINE 1% INJ 10MG/ML (20 ML MDV) ONE (13:03)
[2022-12-03] MEDS ORDERED: fentaNYL (PF) 50 MCG/ML 2 ML AMP ONE (13:15)
[2022-12-03] MEDS ORDERED: GLYCOPYRROLATE 0.2 MG/ML 2 ML VIAL ONE (13:15)
[2022-12-03] MEDS ORDERED: HEPARIN SODIUM,PORCINE 10,000 UNIT/ML 1 ML VIAL ONE (13:15)
[2022-12-03] MEDS ORDERED: PROTAMINE SULFATE 10 MG/ML 5 ML VIAL ONE (13:15)
[2022-12-03] MEDS ORDERED: LABETALOL 5 MG/ML VIAL MDV ONE (13:15)
[2022-12-03] MEDS ORDERED: hydrALAZINE HCL 20 MG/ML 1 ML VIAL ONE (13:15)
[2022-12-03] MEDS ORDERED: TICAGRELOR 90 MG TAB ONE (13:27)
[2022-12-03] MEDS ORDERED: TICAGRELOR 90 MG TAB PO ONE (13:29)
[2022-12-03] MEDS ORDERED: CEFAZOLIN IRRIGATION ONE (13:49)
[2022-12-03] MEDS ORDERED: SODIUM CHLORIDE 0.9% IRRIGATION ONE (13:49)
[2022-12-03] MEDS ORDERED: LIDOCAINE 1% INJ 10MG/ML (20 ML MDV) SQ ONE (15:48)
[2022-12-03] MEDS ORDERED: ATROPINE SULFATE 0.1 MG/ML 10ML SYRINGE IV PRN (16:01)
[2022-12-03] MEDS ORDERED: HYDROcodone/APAP 5-325MG 1 EACH TAB PO PRN (16:01)
[2022-12-03] MEDS ORDERED: MAG HYDROX/AL HYDROX/SIMETH 30 ML CUP PO PRN (16:01)
--- NOTE | 2022-12-03 16:01 | P.OP ---
Description of Procedure: Date: 12/03/2022 Preoperative diagnosis: Bilateral carotid artery stenosis, left internal carotid artery stenosis greater than 80% Postoperative diagnosis: Same Procedure: Left Transcarotid artery revascularization with stenting, ultrasound- guided right common femoral vein central venous catheter placement Surgeon: Chris Lam DO Wood Panel Inspector: Phyllis Lawler DO Anesthesia: Local with sedation Complications: None Condition: Stable Flow reversal time: 9 minutes Contrast: 30 mL Fluoroscopy time: 5.3 minutes Indication for procedure: 82-year-old gentleman with history of bilateral internal carotid artery stenosis presents to the Refractory Worker for elective left trans-carotid artery revascularization and stenting. Operative narrative: After written and informed consent was obtained the patient all risks benefits and competitions were described the patient was brought to the Refractory Worker and laid in a supine position. The area of the neck and groins were prepped and draped in usual sterile fashion after appropriate anesthetic was performed per the anesthesiologist. A timeout was performed in normal fashion and antibiotics were administered prior to incision. Utilizing ultrasound the left common carotid artery was located and a transverse incision was created overlying this area. Dissection was carried between the sternocl eidomastoid musculature down to the carotid sheath. The sheath was then incised and the common carotid artery was located and dissected free in a circumferential manner and controlled with umbilical tape. Once controlled attention was placed down to the common femoral vein on the right and utilizing ultrasound the vein was cannulated and the 8-Nigerian sheath was placed in normal fashion. Attention was then placed back to the carotid artery and the patient was administered heparin and followed with ACTs and redosed as needed for ACT above 200. A pursestring suture was then placed at the common carotid artery with 6-0 Prolene and utilizing a multipurpose needle the common carotid artery was accessed and wire was placed followed by a 4-Nigerian sheath. Carotid angiogram was then obtained demonstrating significant stenosis greater than 80% in the internal carotid artery. Stiff wire was then placed followed by the 8 [place] sheath. Flow reversal was then established with the enroute COMPUTER DESIGNER system after patient's blood pressure was increased to above 160, heart rate above 60 and ACT above 250. 014 wire was then placed across the lesion followed by a 4 x 30 mm balloon and balloon angioplasty was performed followed by an 8 x 30 mm [place] stent. Postdilatation was not performed and final angiogram was obtained demonstrating complete resolution of the stenosis. All guidewires and catheters were removed and the sheath was removed and the arteriotomy was secured with the previously placed pursestring suture. Hemostasis was assured with Gelfoam and thrombin. The femoral sheath was also removed and pressure was held for hemostasis. The patient all procedure well and was moving all extremities and following commands. She was then sent to PACU for recovery.
[2022-12-03] MEDS ORDERED: SODIUM CHLORIDE 0.9% 1,000 ML IV SCH (16:15)
[2022-12-03] MEDS: PSEUDOEPHEDRINE 30 MG TAB PO SCH (17:01)
[2022-12-03 18:26] LABS: Glucose,Whole Blood 90 mg/dL (70-110)
[2022-12-03] MEDS: TICAGRELOR 90 MG TAB PO SCH (20:15)
[2022-12-03] MEDS: GLIMEPIRIDE 2 MG TAB PO SCH (20:15)
[2022-12-03] MEDS: DORZOLAMIDE-TIMOLOL 2.23%/0.68 10ML BTL LEFT EYE SCH (20:16)
[2022-12-03] MEDS ORDERED: LOSARTAN 50 MG TAB PO SCH (21:00)
[2022-12-03] MEDS ORDERED: NON FORMULARY DRUG (Glucos Sul 2kcl/Msm/Chond/C/Mn [Glucosamine Chondroitin Cap] 1 EACH Ca PO SCH (21:00)
[2022-12-03] MEDS ORDERED: LATANOPROST 0.005% OPHTH DROPS 2.5 ML BTL BOTH EYES SCH (21:00)
[2022-12-03] MEDS ORDERED: SAW PALMETTO 450 MG PO SCH (21:00)
[2022-12-04] VITALS: TEMP 97.7
[2022-12-04] MEDS: PSEUDOEPHEDRINE 30 MG TAB PO SCH ×2 (00:41→09:14)
[2022-12-04 06:05] LABS: Glucose,Whole Blood 100 mg/dL (70-110)
[2022-12-04] MEDS ORDERED: PANTOPRAZOLE 40 MG TABLET PO SCH (07:30)
--- NOTE | 2022-12-04 08:01 | P.CONS ---
History of Present Illness - History of Present Illness this is a pleasant 82 yo female with past medical history of CVA/TIA, Diabetes Mellitus, Hyperlipidemia, Hypertension, has CLL-has had for 20 yrs.,, glaucoma, past hx. TIA's per MRI Patient admitted for her bilateral carotid artery stenosis with left artery is narrowed by 80%. Patient underwent left carotid artery revascularization with stenting and right femoral central venous catheter placement Patient currently lying in bed looks comfortable denies any complaints. He could not sleep last night because his in the hospital and he did not get his medication for his urinary retention which she takes at home (patient says that she brought the medicine at home and he is going to be related to the staff and to the pharmacist BE given to him). However patient denies any urinary symptoms. No dysuria or urgency. No abdominal pain vomiting or diarrhea. As chest pain or dyspnea currently. No headache weakness or numbness. Patient is asking when he can go home One his left neck is healing with dressing in place. Patient denies smoking or illicit drugs. He drinks alcohol occasionally, he drinks one cup of liquor about 4 times a week. Patient is afebrile and hemodynamically stable Labs reviewed, WBC 76.4. Risks of CBC, BMP is unremarkable. Glucose controlled. Review of Systems Review of systems CONSTITUTIONAL: No fever, no malaise, no fatigue. HEENT: No recent visual problems or hearing problems. Denied any sore throat. CARDIOVASCULAR: No orthopnea, PND, no palpitations, no syncope. PULMONARY: No shortness of breath, no cough, no hemoptysis. GASTROINTESTINAL: No diarrhea, no nausea, no vomiting, no abdominal pain. Normoactive bowel sounds. NEUROLOGICAL: No headaches, no weakness, no numbness. HEMATOLOGICAL: Denies any bleeding or petechiae. GENITOURINARY: Denies any burning micturition, frequency, or urgency. MUSCULOSKELETAL/RHEUMATOLOGICAL: Denies any joint pain, swelling, or any muscle pain. ENDOCRINE: Denies any polyuria or polydipsia. 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 TIA's per MRI History of Any Multi-Drug Resistant Organisms: MRSA Year Discovered:: 12/12/19 MDRO Source:: Right middle Finger Past Surgical History: Cholecystectomy, Orthopedic Surgery Additional Past Surgical History / Comment(s): rt rotator cuff, tear duct repair, colonoscopy, trigger finger sx citlalli hand, rt hand incision and drainage, carotid angiogram recently Past Anesthesia/Blood Transfusion Reactions: No Reported Reaction Smoking Status: Former smoker Medications and Allergies Home Medications Medication Instructions Recorded Confirmed Type Ascorbic Acid [Vitamin C] 500 mg PO DAILY 01/15/20 11/30/22 History Aspirin EC [Ecotrin Low Dose] 81 mg PO DAILY 01/15/20 11/30/22 History Atorvastatin Calcium [Lipitor] 10 mg PO DAILY 01/15/20 11/30/22 History Dorzolamide-Timol 2.23%/0.68% 1 drop LEFT EYE BID 01/15/20 11/30/22 History [Cosopt] Gabapentin [Neurontin] 300 mg PO DAILY 01/15/20 11/30/22 History Glimepiride [Amaryl] 2 mg PO BID 01/15/20 11/30/22 History Glucos Sul 2Kcl/MSM/Chond/C/Mn 1 tab PO BID 01/15/20 11/30/22 History [Glucosamine Chondroitin Cap] Latanoprost/Pf [Latanoprost 0.005% 1 drop BOTH EYES HS 01/15/20 11/30/22 History Eye Drop] Multivitamins, Thera [Multivitamin 1 tab PO DAILY 01/15/20 11/30/22 History (formulary)] Saw [place] 450mg 450 mg PO BID 01/15/20 11/30/22 History Sertraline [Zoloft] 25 mg PO PC-LUNCH 01/15/20 11/30/22 History Tamsulosin HCl [Flomax] 0.4 mg PO DAILY 01/15/20 11/30/22 History Losartan Potassium 100 mg PO HS 10/14/22 11/30/22 History Omeprazole 20 mg PO DAILY 10/14/22 11/30/22 History Clopidogrel [Plavix] 75 mg PO DAILY 11/30/22 12/03/22 History Allergies Allergy/AdvReac Type Severity Reaction Status Date / Time adhesive tape Allergy Rash/Hives Verified 12/03/22 09:42 Sulfa (Sulfonamide Allergy Unknown Verified 12/03/22 09:42 Antibiotics) Physical Exam Vitals: Vital Signs Temp Pulse Pulse Resp BP BP BP 12/04/22 04:00 80 16 152/66 12/04/22 02:00 148/62 12/03/22 23:48 97.7 F 62 19 159/68 12/03/22 22:48 98 F 66 19 168/74 12/03/22 22:05 97.9 F 64 18 176/75 12/03/22 19:46 98 F 86 18 161/75 12/03/22 18:51 98.6 F 57 L 17 125/61 12/03/22 18:00 63 17 131/63 12/03/22 17:45 55 L 17 122/55 133/52 12/03/22 17:30 53 L 15 113/56 122/48 12/03/22 17:15 55 L 16 116/55 123/48 12/03/22 17:00 57 L 15 118/58 111/41 12/03/22 16:45 57 L 17 110/55 106/40 12/03/22 16:30 69 16 109/55 102/45 12/03/22 16:15 60 16 119/57 103/42 12/03/22 16:00 63 12 113/72 12/03/22 13:08 97.2 F L 59 L 16 184/77 2325/99 Pulse Ox 12/04/22 04:00 98 12/04/22 02:00 12/03/22 23:48 99 12/03/22 22:48 97 12/03/22 22:05 96 12/03/22 19:46 97 12/03/22 18:51 95 12/03/22 18:00 94 L 12/03/22 17:45 95 12/03/22 17:30 93 L 12/03/22 17:15 94 L 12/03/22 17:00 92 L 12/03/22 16:45 94 L 12/03/22 16:30 97 12/03/22 16:15 97 12/03/22 16:00 96 12/03/22 13:08 95 Intake and Output 12/03/22 12/03/22 12/04/22 14:59 22:59 06:59 Intake Total 850 200 Output Total 1350 Balance 850 200 -1350 Intake: IV 850 200 Output: Urine 1350 Straight 550 GENERAL: The patient is alert and oriented x3, not in any acute distress. Well developed, well nourished. HEENT: Pupils are round and equally reacting to light. EOMI. No scleral icterus. No conjunctival pallor. Normocephalic, atraumatic. No pharyngeal erythema. No thyromegaly. CARDIOVASCULAR: S1 and S2 present. No murmurs, rubs, or gallops. -PULMONARY: Chest is clear to auscultation, no wheezing , no crackles. Small left neck wound, healing with a dressing in place ABDOMEN: Soft, nontender, nondistended, normoactive bowel sounds. No palpable organomegaly. MUSCULOSKELETAL: No joint swelling or deformity. EXTREMITIES: No cyanosis, clubbing, or pedal edema. NEUROLOGICAL: Gross neurological examination did not reveal any focal deficits. SKIN: No rashes. no petechiae. Results CBC & Chem 7: 12/03/22 09:35 12/03/22 09:35 Labs: Abnormal Lab Results - Last 24 Hours (Table) 12/03/22 12/03/22 12/03/22 Range/Units 09:35 09:35 09:39 WBC 26.4 H (3.8-10.6) k/uL Lymphocytes # 20.9 H (1.0-4.8) k/uL Chloride 108 H (98-107) mmol/L Glucose 124 H (74-99) mg/dL POC Glucose (mg/dL) 121 H (70-110) mg/dL Assessment and Plan Assessment: Left internal carotid artery stenosis, status post Patient underwent left carotid artery revascularization with stenting Chronic leukocytosis related to his history of chronic lymphocytic leukemia for more than 20 years Diabetes mellitus Hypertension Hyperlipidemia Benign prostatic hypertrophy History of glaucoma Plan: Continue with aspirin, losartan and brillinta vascular surgery primary team on the case We recommend patient follow up with PCP Dr. Escobar and parts finisher Dr. Mi in 1 week after discharge Labs and medication were reviewed.. Continue same treatment. Continue with symptomatic treatment. Resume home medication. Monitor lytes and vitals. DVT and GI prophylaxis. Further recommendations depends on the clinical course of the patient DVT prophylaxis: aspirin and brillinta GI Prophylaxis: Ppi Thank you for consulting us
[2022-12-04 08:43] VITALS: BP 148/72; PULSE 65; RESP 17
[2022-12-04] MEDS ORDERED: TAMSULOSIN 0.4 MG CAP.ER.24H PO SCH (09:00)
[2022-12-04] MEDS ORDERED: ATORVASTATIN 10 MG TAB PO SCH (09:00)
[2022-12-04] MEDS ORDERED: MULTIVITAMINS, THERA 1 EACH TAB PO SCH (09:00)
[2022-12-04] MEDS ORDERED: ASCORBIC ACID 500 MG TAB PO SCH (09:00)
[2022-12-04] MEDS ORDERED: GABAPENTIN 300 MG CAP PO SCH (09:00)
[2022-12-04] MEDS ORDERED: ASPIRIN 81 MG PO SCH ×2 (09:00)
[2022-12-04] MEDS: TICAGRELOR 90 MG TAB PO SCH (09:09)
[2022-12-04] MEDS: GLIMEPIRIDE 2 MG TAB PO SCH (09:09)
[2022-12-04] MEDS: DORZOLAMIDE-TIMOLOL 2.23%/0.68 10ML BTL LEFT EYE SCH (09:10)
--- NOTE | 2022-12-04 09:21 | P.PN ---
Subjective Progress Note Date: 12/04/22 Principal diagnosis: Postop day #1 status post TCAR left carotid. Patient's postoperative day #1. He indicates she feels well and offers no complaints. He is eating breakfast. He denies any dysphagia or other neurologic issue. Objective - Vital Signs Vital signs: Vital Signs Temp 97.7 F 12/04/22 08:20 Pulse 65 12/04/22 08:20 Resp 17 12/04/22 08:20 BP 148/72 12/04/22 08:20 Pulse Ox 97 12/04/22 08:20 FiO2 Intake & Output 12/03/22 12/04/22 12/04/22 18:59 06:59 18:59 Intake Total 1050 110 Output Total 1350 Balance 1050 -1350 110 Intake: IV 1050 Oral 110 Output: Urine 1350 Straight 550 - Exam Patient is awake and alert. Surgical wounds clean, dry and otherwise unremarkable. No new neurologic deficit is identified. - Labs CBC & Chem 7: 12/03/22 09:35 12/03/22 09:35 Labs: Abnormal Lab Results - Last 24 Hours (Table) 12/03/22 12/03/22 12/03/22 Range/Units 09:35 09:35 09:39 WBC 26.4 H (3.8-10.6) k/uL Lymphocytes # 20.9 H (1.0-4.8) k/uL Chloride 108 H (98-107) mmol/L Glucose 124 H (74-99) mg/dL POC Glucose (mg/dL) 121 H (70-110) mg/dL Assessment and Plan Assessment: Postop day #1 status post TCAR procedure, doing well. Plan: Patient surgically stable for dismissal from the hospital on outpatient follow- up. I discussed with the patient his ability to shower over his wound. I did recommend the patient avoid driving until being seen in follow-up as an outpatient by Dr. Lam. Patient will be dismissed on [place] to. Discussed with Dr. Guillen. Time with Patient: Less than 30
[2022-12-04 09:23] LABS: HCT 43.1 % (39.0-53.0); HGB 14.9 gm/dL (13.0-17.5); MCH 33.4 pg (25.0-35.0); MCHC 34.6 g/dL (31.0-37.0); MCV 96.4 fL (80.0-100.0); Mean Platelet Volume 7.4; Platelet Count 167 k/uL (150-450); RBC 4.47 m/uL (4.30-5.90); RDW 12.2 % (11.5-15.5); WBC 22.3 k/uL (3.8-10.6)
[2022-12-04 09:47] LABS: African American GFR (CKD) 87 (>60 ml/min/1.73 sqM); Anion Gap 12 mmol/L; Blood Urea Nitrogen 18 mg/dL (9-20); Calcium 9.1 mg/dL (8.4-10.2); Carbon Dioxide 19 mmol/L (22-30); Chloride 109 mmol/L (98-107); Glucose 93 mg/dL (74-99); Non-African American GFR(CKD) 75 (>60 ml/min/1.73 sqM); Potassium 3.8 mmol/L (3.5-5.1); Sodium 140 mmol/L (137-145)
[2022-12-04 10:18] LABS: Lymphocytes # (M) 14.27 k/uL (1.0-4.8); Monocytes # (M) 0.67 k/uL (0-1.0); Neutrophils # (M) 7.36 k/uL (1.3-7.7); Neutrophils % (M) 33 %; Nucleated Red Blood Cells 0 /100 WBC (0-0); Reactive Lymphocytes Present; Total Cells Counted 100
[2022-12-04] MEDS ORDERED: SERTRALINE 25 MG TAB PO SCH (13:30)
--- NOTE | 2022-12-06 07:22 | IR ---
EXAMINATION TYPE: IR stent intravas non coronary DATE OF EXAM: 12/03/2022 COMPARISON: NONE HISTORY: Fluoroscopy time. Fluoroscopy was provided to the referring clinician.
== END 2022-12-04 10:25 | disposition home or self-care (01) | DRG 36 ==
LOC: 2ORMAIN 09:06 → 3SCARD 17:51
PROVIDERS: ADMIT Surgery; ATTEND Surgery
PROC: 037L34Z Dilation of Left Internal Carotid Artery with Drug-eluting Intraluminal Device, Percutaneous Approach (ICD-10-PCS; principal; 2022-12-03 11:30)
DX: I65.22 Occlusion and stenosis of left carotid artery (principal); E11.9 Type 2 diabetes mellitus without complications; I10 Essential (primary) hypertension; H40.9 Unspecified glaucoma; D72.828 Other elevated white blood cell count; E78.5 Hyperlipidemia, unspecified; R33.8 Other retention of urine; N40.0 Benign prostatic hyperplasia without lower urinary tract symptoms; Z85.6 Personal history of leukemia; Z86.73 Personal history of transient ischemic attack (TIA), and cerebral infarction without residual deficits; Z86.14 Personal history of Methicillin resistant Staphylococcus aureus infection; Z87.891 Personal history of nicotine dependence; Z79.82 Long term (current) use of aspirin; Z79.84 Long term (current) use of oral hypoglycemic drugs; Z79.899 Other long term (current) drug therapy; Z79.891 Long term (current) use of opiate analgesic; Z79.02 Long term (current) use of antithrombotics/antiplatelets; Z88.2 Allergy status to sulfonamides; Z91.048 Other nonmedicinal substance allergy status
CPT/HCPCS: 37215; 76937; 80048; 85025; 86850; 86900; 86901